=== PATIENT | male | born 1950 | race Caucasian/White ===

== ENCOUNTER 2020-01-05 12:30 | Emergency (ER) | payer MEDICARE, OTHER ==
[2020-01-05 12:43] VITALS: BP 161/81; PULSE 76; RESP 16; TEMP 97.9
[2020-01-05 13:42] LABS: Prothrombin Time 80.8 sec (9.0-12.0)
[2020-01-05 13:46] LABS: HGB 10.3 gm/dL (13.0-17.5); MCH 27.6 pg (25.0-35.0); MCV 86.2 fL (80.0-100.0); Mean Platelet Volume 7.4; Platelet Count 126 k/uL (150-450); RBC 3.72 m/uL (4.30-5.90); RDW 14.8 % (11.5-15.5); WBC 7.2 k/uL (3.8-10.6)
[2020-01-05 13:47] LABS: Albumin 3.7 g/dL (3.5-5.0); Calcium 8.4 mg/dL (8.4-10.2); Potassium 5.9 mmol/L (3.5-5.1); Total Bilirubin 0.5 mg/dL (0.2-1.3); Total Protein 6.3 g/dL (6.3-8.2)
[2020-01-05 13:49] LABS: INR 7.8 (<1.2)
[2020-01-05 13:52] LABS: Partial Thromboplastin Time 66.1 sec (22.0-30.0)
--- NOTE | 2020-01-05 13:53 | ED ---
General Adult HPI - General Chief complaint: Recheck/Abnormal Lab/Rx Stated complaint: high INR Time Seen by Provider: 01/05/20 12:35 Source: patient Mode of arrival: ambulatory Limitations: no limitations - History of Present Illness Initial comments: Patient is 69-year-old male past medical history of A. fib, DVT, hypertension who presents emergency room with elevated INR. Family and room states that the patient was recently started on new medication for hyperkalemia which has subsequently gives him diarrhea. Reports for the past 2 weeks has had issues with his INR being supratherapeutic. They followed up today at the [facility] clinic at the patient had some bleeding to his left forearm. This was concerned that the INR was high. In office he was measured as greater than in the emergency room for evaluation. He denies any headaches or visual changes. No chest pain or shortness of breath. No abdominal pain. Denies any hematuria, hemoptysis, hematemesis. Other alleviating, precipitating or modifying factors - Related Data Allergies Allergy/AdvReac Type Severity Reaction Status Date / Time No Known Allergies Allergy Verified 01/05/20 12:43 Review of Systems ROS Statement: Those systems with pertinent positive or pertinent negative responses have been documented in the HPI. ROS Other: All systems not noted in ROS Statement are negative. Past Medical History Past Medical History: Atrial Fibrillation, Hyperlipidemia, Hypertension, Myocardial Infarction ([place]), Renal Disease Additional Past Medical History / Comment(s): Respiratory failure, stage 3 History of Any Multi-Drug Resistant Organisms: None Reported Additional Past Surgical History / Comment(s): liver transplant, triple bypass, Past Psychological History: No Psychological Hx Reported Smoking Status: Never smoker Past Alcohol Use History: None Reported Past Drug Use History: None Reported General Exam Limitations: no limitations General appearance: alert, in no apparent distress Head exam: Present: atraumatic, normocephalic, normal inspection Eye exam: Present: normal appearance, PERRL, EOMI. Absent: scleral icterus, conjunctival injection, periorbital swelling ENT exam: Present: normal exam, mucous membranes moist Neck exam: Present: normal inspection. Absent: tenderness, meningismus, lymphadenopathy Respiratory exam: Present: normal lung sounds bilaterally. Absent: respiratory distress, wheezes, rales, rhonchi, stridor Cardiovascular Exam: Present: regular rate, normal rhythm, normal heart sounds. Absent: systolic murmur, diastolic murmur, rubs, gallop, clicks GI/Abdominal exam: Present: soft, normal bowel sounds. Absent: distended, tenderness, guarding, rebound, rigid Extremities exam: Present: normal inspection, full ROM, normal capillary refill. Absent: tenderness, pedal edema, joint swelling, calf tenderness Back exam: Present: normal inspection Neurological exam: Present: alert, oriented X3, CN II-XII intact Psychiatric exam: Present: normal affect, normal mood Skin exam: Present: warm, dry, intact, other (ecchymosis over dorsal forearms in differents stages of healing. skin tear left distal dorsal forearm measuring 1.5 x 0.5 cm - not actively bleeding). Absent: rash Course Vital Signs 01/05/20 12:36 Temperature 97.9 F Pulse Rate 76 Respiratory 16 Rate Blood Pressure 161/81 O2 Sat by Pulse 99 Oximetry Medical Decision Making - Medical Decision Making Upon arrival patient is placed in room 13. There was some physical exam is performed. Patient does have a skin tear noted to his left forearm however bleeding has stopped at this time. I did recommend repeating an INR at her facility for which patient did agree to. Lab studies demonstrated hemoglobin is 10.3. INR 7.8. Potassium 5.9. Creatinine 2.8. Family in the room state that the patient does have chronic kidney disease and this is around his normal kidney function. They also state that the potassium is not to regular for him either. He did not take his medication today for hyperkalemia. I did recommend treatment with 5 g of oral vitamin K. Patient has an appointment tomorrow in follow-up with his primary care doctor for repeat labs. Patient continues to refuse any additional bleeding besides cutaneous bleeding. Patient will follow up tomorrow without fail. Return to the emergency room for any new or worsening symptoms. The patient's family understood the patient was discharged in stable condition - Lab Data Result diagrams: 01/05/20 13:07 01/05/20 13:07 Lab Results 01/05/20 01/05/20 01/05/20 Range/Units 13:07 13:07 13:07 WBC 7.2 (3.8-10.6) k/uL RBC 3.72 L (4.30-5.90) m/uL Hgb 10.3 L (13.0-17.5) gm/dL Hct 32.0 L (39.0-53.0) % MCV 86.2 (80.0-100.0) fL MCH 27.6 (25.0-35.0) pg MCHC 32.0 (31.0-37.0) g/dL RDW 14.8 (11.5-15.5) % Plt Count 126 L (150-450) k/uL Neutrophils % (Manual) 89 % Band Neuts % (Manual) 2 % Lymphocytes % (Manual) 6 % Monocytes % (Manual) 1 % Eosinophils % (Manual) 2 % Neutrophils # (Manual) 6.50 (1.3-7.7) k/uL Lymphocytes # (Manual) 0.43 L (1.0-4.8) k/uL Monocytes # (Manual) 0.07 (0-1.0) k/uL Eosinophils # (Manual) 0.14 (0-0.7) k/uL Nucleated RBCs 0 (0-0) /100 WBC Manual Slide Review Performed Poikilocytosis (manual Present PT 80.8 H (9.0-12.0) sec INR 7.8 H* (<1.2) APTT 66.1 H (22.0-30.0) sec Sodium 140 (137-145) mmol/L Potassium 5.9 H (3.5-5.1) mmol/L Chloride 109 H (98-107) mmol/L Carbon Dioxide 23 (22-30) mmol/L Anion Gap 8 mmol/L BUN 82 H (9-20) mg/dL Creatinine 2.81 H (0.66-1.25) mg/dL Est GFR (CKD-EPI)AfAm 25 (>60 ml/min/1.73 sqM) Est GFR (CKD-EPI)NonAf 22 (>60 ml/min/1.73 sqM) Glucose 112 H (74-99) mg/dL Calcium 8.4 (8.4-10.2) mg/dL Total Bilirubin 0.5 (0.2-1.3) mg/dL AST 21 (17-59) U/L ALT 14 (4-49) U/L Alkaline Phosphatase 100 (38-126) U/L Total Protein 6.3 (6.3-8.2) g/dL Albumin 3.7 (3.5-5.0) g/dL Disposition Clinical Impression: Supratherapeutic INR, Hyperkalemia, CKD (chronic kidney disease), Afib, Skin abrasion Disposition: HOME SELF-CARE Condition: Stable Instructions (If sedation given, give patient instructions): Elevated INR (ED) Additional Instructions: Please follow-up with your primary care doctor tomorrow for an INR check. Hold your Coumadin at this time. Return to the emergency room for any new or worsening symptoms Is patient prescribed a controlled substance at d/c from ED?: No Referrals: Zack Birmingham MD [Primary Care Provider] - 1-2 days Time of Disposition: 14:21
[2020-01-05 14:16] LABS: Band Neutrophils % 2 %; Eosinophils # (M) 0.14 k/uL (0-0.7); Lymphocytes # (M) 0.43 k/uL (1.0-4.8); Monocytes # (M) 0.07 k/uL (0-1.0); Neutrophils % (M) 89 %; Nucleated Red Blood Cells 0 /100 WBC (0-0); Poikilocytosis (M) Present; Total Cells Counted 100
[2020-01-05] MEDS ORDERED: PHYTONADIONE ORAL 5 MG/5 ML ORAL.SYRG PO STA (14:19)
== END 2020-01-05 14:43 | disposition home or self-care (01) ==
LOC: EC 12:30
DX: R79.1 Abnormal coagulation profile (principal); E87.5 Hyperkalemia; I12.9 Hypertensive chronic kidney disease with stage 1 through stage 4 chronic kidney disease, or unspecified chronic kidney disease; N18.9 Chronic kidney disease, unspecified; I25.2 Old myocardial infarction; Z94.4 Liver transplant status; Z95.1 Presence of aortocoronary bypass graft
CPT/HCPCS: 36415; 80053; 85025; 85610; 85730; 99283